=== PATIENT | female | born 1970 ===

== ENCOUNTER 2023-04-27 07:17 | Day surgery (SDC) | payer MEDICAID, OTHER ==
[~2023-04-27 07:17] MED LIST: Dextrose 5%-0.45% NaCl 1,000 ML IV SCH
[2023-04-27] MEDS ORDERED: fentaNYL 100 MCG/2 ML SDV IV ONE ×6 (07:18→08:50)
[2023-04-27] MEDS ORDERED: Midazolam 1 MG/ML 2 ML SDV IV ONE ×7 (07:18→08:44)
[2023-04-27] MEDS ORDERED: Midazolam 1 MG/ML 2 ML SDV ONE (07:32)
[2023-04-27] MEDS ORDERED: fentaNYL 100 MCG/2 ML SDV ONE (07:32)
[2023-04-27 09:52] VITALS: BP 122/46; PULSE 62
== END 2023-04-27 10:22 | disposition home or self-care (01) ==
LOC: DL.ENDO 07:17
PROVIDERS: ATTEND Internal Medicine Gastroenterology
DX: Z12.11 Encounter for screening for malignant neoplasm of colon (principal); E78.5 Hyperlipidemia, unspecified; E66.01 Morbid (severe) obesity due to excess calories; G47.30 Sleep apnea, unspecified; Z88.8 Allergy status to other drugs, medicaments and biological substances; Z68.42 Body mass index [BMI] 45.0-49.9, adult
CPT/HCPCS: J2250; J3010; J7042

== ENCOUNTER 2023-05-03 12:38 | Emergency (ER) | payer MEDICAID ==
[2023-05-03] MEDS ORDERED: cefTRIAXone 1 GM, Lidocaine 1% 2.1 ML IM ONE ×2 (12:55)
[2023-05-03 12:56] VITALS: BP 136/74; PULSE 79
== END 2023-05-03 13:11 | disposition home or self-care (01) ==
LOC: DL.ED 12:38
DX: J06.9 Acute upper respiratory infection, unspecified (principal); H66.92 Otitis media, unspecified, left ear; I10 Essential (primary) hypertension; E66.9 Obesity, unspecified; Z68.42 Body mass index [BMI] 45.0-49.9, adult; Z86.16 Personal history of COVID-19; Z79.899 Other long term (current) drug therapy
CPT/HCPCS: 96372; 99283; J0696; J3490